=== PATIENT | female | born 1960 | race Caucasian/White ===

== ENCOUNTER 2017-01-11 15:01 | Emergency (ER) | payer SELFPAY ==
[~2017-01-11] VITALS: Ht 152.4 cm; Wt 95.0 kg
[~2017-01-11 15:01] MED LIST: DOXY100T PO; LEVA500T PO; LISI-586 PO; PHEN12.5 PR; PRED10 PO; TYLE3 PO; Z.0.OXYGENDME NC; ZOFR4TAB3 SL
[2017-01-11 15:04] VITALS: BP 224/113; PULSE 86; RESP 15; TEMP 97.7; O2SAT 95
[2017-01-11] MEDS ORDERED: PRED-503 PO (16:13)
--- NOTE | 2017-01-11 16:14 | PD ---
HPI Chief Complaint: Allergic/Adverse Reaction Time Seen by Provider: 16:09 Travel History International Travel<30 days: No Contact w/Intl Traveler<30days: No Traveled to known affect area: No History of Present Illness HPI 56-year-old female presents to emergency Department with complaint of generalized rash since yesterday. Rash is extremely itchy ceases. Denies airway edema, time and edema, shortness of breath, difficulty breathing. Denies fever, vomiting. Says she started taking a new medication on either or Tuesday of Flexeril and Tylenol with Codeine. Has been taking ibuprofen for symptom management. Patient's blood pressure is elevated in the ER. She says she's been taking her blood pressure over the past couple weeks and it has been in the 200s. She denies chest pain, shortness of breath, abdominal pain, vomiting, headache, change in vision. Has history of hypertension and has not taken medications for over a year. Has no other medical complaints. Allergies to JEMIMA inhibitor use, sulfas. No other modifying factors or associated signs and symptoms. 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) Neurologic: Yes Psychiatric: Yes Respiratory: Yes (copd) ?: Not LMP: 12/11/2016 Menopausal: Yes Past Surgical History Hysterectomy: No Other Surgery: No Social History Alcohol Use: Yes (SOCIALLY) Tobacco Use: Yes (pack a day ) Substance Use: No Allergies-Medications (Allergen,Severity, Reaction): Coded Allergies: Sulfa (Sulfonamide Antibiotics) (Unverified Allergy, Severe, Rash, 12/14/16 ) Uncoded Allergies: JEMIMA inhibitors rash (Allergy, Mild, 10/20/11) Reported Meds & Prescriptions Reported Meds & Active Scripts Active Norvasc (Amlodipine Besylate) 5 Mg Tab 5 Mg PO DAILY Deltasone (Prednisone) 20 Mg Tab 40 Mg PO DAILY 4 Days start 01/12/2017 Phenergan (Promethazine HCl) 12.5 Mg Sup 12.5 Mg DE Q6H PRN FOR NAUSEA Zofran ODT (Ondansetron HCl) 4 Mg Tab 4 Mg SL Q6H PRN FOR NAUSEA/VOMITING Doxycycline Hyclate 100 mg (Doxycycline Hyclate) 100 Mg Tab 1 Tab PO Q12H 7 Days Oxygen (O2) (Z.0.oxygendme) Device 2 L NC CONTINUOUS Oxygen Concentrator Portable Gaseous 2 L/min via Nasal Cannula Continuous For 99 months Deltasone 10 Mg Tab (Prednisone) 10 Mg Tab 10 Mg PO DIRECTED Levaquin 500 Mg Tab (Levofloxacin) 500 Mg Tab 500 Mg PO DAILY 5 Days Reported Tylenol #3 (Acetaminophen/Codeine Phosphate) Acetaminophen 300/30 Codeine Tab 1 Tab PO Q6H PRN FOR PAIN Zestoretic 20/12.5 (Lisinopril/Hctz 20 mg/12.5 mg) 20 Mg/12.5 Mg Tab 1 Tab PO DAILY Review of Systems Except as stated in HPI: all other systems reviewed are Neg Physical Exam Narrative GENERAL: Well-nourished, well-developed female patient, in no acute distress; afebrile, nontoxic-appearing SKIN: Warm and dry. Generalized large and small areas of maculopapular rash to bilateral upper and lower extremities, chest, abdomen, back. No cellulitic process noted. HEAD: Atraumatic. Normocephalic. EYES: Pupils equal and round. No scleral icterus. No injection or drainage. ENT: Mucosa pink and moist. No erythema or exudates. No uvular edema. No uvular , palatal, or tonsillar deviation. Airway patent. EARS: Bilateral pinnae and external canals appear within normal limits. Bilateral tympanic membranes without erythema, dullness or perforation. NECK: Trachea midline. No lymphadenopathy. CARDIOVASCULAR: Regular rate and rhythm. No murmur appreciated. RESPIRATORY: No accessory muscle use. Clear to auscultation. Breath sounds equal bilaterally. No retractions or tachypnea. No audible wheezing or stridor. GASTROINTESTINAL: Abdomen soft, non-tender, nondistended. Hepatic and splenic margins not palpable. Bowel sounds are active 4 quadrants. MUSCULOSKELETAL: No obvious deformities. No clubbing. No cyanosis. No edema. NEUROLOGICAL: Awake and alert. Oriented 3. No obvious cranial nerve deficits. Motor grossly within normal limits. Normal speech. Moves all extremities. 5/5 strength to all extremities. PSYCHIATRIC: Appropriate mood and affect; insight and judgment normal. Data Data Last Documented VS Vital Signs Date Time Temp Pulse Resp B/P (MAP) Pulse Ox O2 Delivery O2 Flow Rate FiO2 01/11/17 16:18 243/117 (159) 01/11/17 15:04 97.7 86 15 95 Orders Orders Prednisone (Deltasone) (01/11/17 16:15) Amlodipine (Norvasc) (01/11/17 16:30) MDM Medical Decision Making Medical Screen Exam Complete: Yes Emergency Medical Condition: Yes Medical Record Reviewed: Yes Differential Diagnosis Hives, allergic reaction, high blood pressure, medical clearance Narrative Course 56-year-old female physical exam consistent with hives and high blood pressure. Patient's blood pressure is elevated in the ER. She has history of hypertension and has not taken medication for over a year. She is asymptomatic. She says she has checked her blood pressure in the past couple weeks to couple times and it has been elevated in the 200s. Deltasone and Norvasc administered in the ER. Deltasone and Norvasc prescribed for home. Patient provided information for follow-up at [facility]. Instructed patient to follow up with primary care provider. Patient verbalizes understanding and agreement with treatment plan. Patient is medically cleared and stable for discharge. Discussed reasons to return to the emergency department. Patient agrees with treatment plan. The patients vital signs are stable and the patient is stable for outpatient follow-up and treatment. Patient discharged home, stable and in no acute distress. Diagnosis Primary Impression: Hives Additional Impression: High blood pressure Qualified Codes: I10 - Essential (primary) hypertension Med/Other Pt SpecificInfo: Prescription(s) given Scripts Amlodipine (Norvasc) 5 Mg Tab 5 MG PO DAILY for Blood Pressure Management, #30 TAB 0 Refills Prov: Sharlene Parekh 01/11/17 Prednisone (Deltasone) 20 Mg Tab 40 MG PO DAILY for 4 Days, TAB 0 Refills start 01/12/2017 Prov: Sharlene Parekh 01/11/17 Disposition: 01 DISCHARGE HOME Condition: Stable Sharlene Parekh Jan 11, 2017 16:14
[2017-01-11] MEDS ORDERED: predniSONE 20 MG TAB PO ONE (16:15)
[2017-01-11] MEDS ORDERED: AMLO5 PO (16:17)
[2017-01-11 16:18] VITALS: BP 243/117
[2017-01-11] MEDS ORDERED: amLODIPine BESYLATE 5 MG TAB PO ONE (16:30)
== END 2017-01-11 16:34 | disposition home or self-care (01) ==
LOC: EDTENT 15:01
DX: L50.9 Urticaria, unspecified (principal); I10 Essential (primary) hypertension; M19.90 Unspecified osteoarthritis, unspecified site; F41.9 Anxiety disorder, unspecified; R00.2 Palpitations; J44.9 Chronic obstructive pulmonary disease, unspecified; F17.200 Nicotine dependence, unspecified, uncomplicated; Z79.899 Other long term (current) drug therapy; Z88.2 Allergy status to sulfonamides
CPT/HCPCS: 99283; J7512